=== PATIENT | male | born 1995 | race Caucasian/White ===

== ENCOUNTER 2017-08-31 23:43 | Emergency (ER) | payer BC ==
[~2017-08-31] VITALS: Ht 188 cm; Wt 79.5 kg
[2017-08-31 23:48] VITALS: TEMP 97.8
[2017-09-01] MEDS ORDERED: CEPHALEXIN500 M1 PO (01:51)
[2017-09-01 02:00] VITALS: BP 102/62; PULSE 61
== END 2017-09-01 02:00 | disposition home or self-care (01) ==
LOC: COL.ER 23:43
DX: S91.311A Laceration without foreign body, right foot, initial encounter (principal); W01.110A Fall on same level from slipping, tripping and stumbling with subsequent striking against sharp glass, initial encounter; Y92.009 Unspecified place in unspecified non-institutional (private) residence as the place of occurrence of the external cause

== ENCOUNTER 2017-09-16 15:14 | Emergency (ER) | payer BC ==
[~2017-09-16 15:14] MED LIST: CEPHALEXIN500 M1 PO
[2017-09-16 15:17] VITALS: BP 144/84; PULSE 115; TEMP 97.1
== END 2017-09-16 15:23 | disposition other institution (70) ==
LOC: COL.ER 15:14
DX: S91.011D Laceration without foreign body, right ankle, subsequent encounter (principal); X58.XXXD Exposure to other specified factors, subsequent encounter

== ENCOUNTER 2019-06-26 20:36 | Emergency (ER) | payer BC ==
[~2019-06-26] VITALS: Ht 188 cm; Wt 84.1 kg
[2019-06-26 20:42] VITALS: TEMP 98.2
[2019-06-26 21:23] LABS: BASO # 0.1 (0.0-0.2); BASO % 0.8 % (0.0-2.0); EOS # 0.2 (0.0-0.7); EOS % 2.1 % (0-4.0); GRAN # 3.9 (1.4-6.5); GRAN % 53.7 % (42.2-75.2); HEMATOCRIT 43.4 % (42.0-52.0); HEMOGLOBIN 15.7 g/dl (13.5-18.0); LYMPH # 2.4 (1.2-3.4); LYMPH % 32.8 % (20.0-51.0); MEAN CELL VOLUME 83 fl (80.0-100.0); MEAN CORPUSCULAR HEMOGLOBIN 30 pg (27.0-31.0); MEAN CORPUSCULAR HGB CONC 36 g/dl (33.0-37.0); MEAN PLATELET VOLUME 9.8 fl (7.4-10.4); MONO # 0.7 (0.1-0.6); MONO % 10.3 % (1.7-9.3); PLATELET COUNT 266 K/mm3 (130-400); RED BLOOD COUNT 5.23 M/mm3 (4.20-5.60); REDCELL DISTRIBUTION WIDTH-CV 11.9 % (11.5-14.5)
[2019-06-26 21:33] LABS: MUCOUS Present /lpf; PH 6 (5-8); SQUAMOUS EPITHELIAL None Seen /hpf; URINE APPEARANCE Clear; URINE BACTERIA None Seen /hpf; URINE BILIRUBIN Negative (NEGATIVE); URINE BLOOD 1+ (NEGATIVE); URINE COLOR Yellow; URINE GLUCOSE Negative (NEGATIVE); URINE KETONE Negative (NEGATIVE); URINE LEUKOCYTE ESTERASE Negative (NEGATIVE); URINE NITRATE Negative (NEGATIVE); URINE PROTEIN(semi-quant) Negative (NEGATIVE); URINE UROBILINOGEN Negative (NEGATIVE); URINE WBC 0-2 /hpf
[2019-06-26 21:37] LABS: COLLECTION METHOD CLEAN CATCH
[2019-06-26 21:42] LABS: ALANINE AMINOTRANSFERASE 21 U/L (21-72); ALBUMIN 4.8 gm/dL (3.5-5.0); ALKALINE PHOSPHATASE 54 U/L (50-136); ANION GAP 10 mmol/L (7-16); AST,SGOT 26 U/L (15-37); BILIRUBIN,TOTAL 1.2 mg/dL (0.0-1.0); BLOOD UREA NITROGEN 17 mg/dL (9-20); CALCIUM 9.4 mg/dL (8.4-10.2); CARBON DIOXIDE 27 mmol/L (22-30); CHLORIDE 101 mmol/L (98-107); CREATININE, serum 0.94 (0.66-1.25); GLUCOSE 134 mg/dL (74-106); LIPASE 68 U/L (23-300); POTASSIUM 3.2 mmol/L (3.4-5.0); SODIUM 138 mmol/L (137-145); TOTAL PROTEIN 7.6 gm/dL (6.4-8.2)
[2019-06-26 21:43] LABS: C-REACTIVE PROTEIN < 0.5 mg/dL (0.0-0.9)
[2019-06-26 22:16] VITALS: BP 144/91; PULSE 85
== END 2019-06-26 22:16 | disposition home or self-care (01) ==
LOC: COL.ER 20:36
PROVIDERS: Emergency Medicine
DX: F41.9 Anxiety disorder, unspecified (principal); R03.0 Elevated blood-pressure reading, without diagnosis of hypertension